=== PATIENT | male | born 1995 | race Caucasian/White ===

== ENCOUNTER 2017-01-02 20:11 | Emergency (ER) | payer MEDICAID ==
[~2017-01-02] VITALS: Ht 180.3 cm; Wt 104.3 kg
[2017-01-02 20:24] VITALS: BP_SYST 143
[2017-01-02 22:09] VITALS: BP_SYST 135
== END 2017-01-02 22:09 | disposition home or self-care (01) ==
LOC: SED 20:11
DX: S93.492A Sprain of other ligament of left ankle, initial encounter (principal); Z88.2 Allergy status to sulfonamides; Z88.1 Allergy status to other antibiotic agents; Z90.49 Acquired absence of other specified parts of digestive tract; X58.XXXA Exposure to other specified factors, initial encounter; Y93.89 Activity, other specified; Y92.89 Other specified places as the place of occurrence of the external cause; Y99.8 Other external cause status
CPT/HCPCS: 99283; 99284

== ENCOUNTER 2019-04-25 22:25 | Emergency (ER) | payer MEDICAID ==
[~2019-04-25] VITALS: Ht 180.3 cm; Wt 86.6 kg
[2019-04-25 22:30] VITALS: BP_SYST 111
--- NOTE | 2019-04-25 22:30 | NUR ---
Patient triaged and placed in waiting room. VSS and patient appears in no acute distress at this time. Accompanied by mother, awaiting available bed, and MD notified of need for MSE.
[2019-04-26 01:00] VITALS: BP_SYST 107
--- NOTE | 2019-04-26 02:00 | NUR ---
Called pt name in the waiting room.No answer.
--- NOTE | 2019-04-26 02:05 | NUR ---
Called pt name in the waiting room.No answer.
--- NOTE | 2019-04-26 02:10 | NUR ---
Called pt name in the waiting room.No answer.
== END 2019-04-26 02:10 | disposition left against medical advice (07) ==
LOC: SED 22:25
DX: M25.511 Pain in right shoulder (principal); M25.512 Pain in left shoulder; Z53.21 Procedure and treatment not carried out due to patient leaving prior to being seen by health care provider
CPT/HCPCS: 73030